=== PATIENT | male | born 1935 | race Caucasian/White ===

== ENCOUNTER → 2018-06-29 | Outpatient (CLI) | payer MEDICARE ==
[~2018-06-29] MED LIST: LEUPROLIDE 22.5MG SYRINGE KIT ONE
== END | disposition home or self-care (01) ==
LOC: ROC 13:43
PROVIDERS: ATTEND Radiology Radiation Oncology
DX: C61 Malignant neoplasm of prostate (principal)
CPT/HCPCS: 96402; G0463; J9217

== ENCOUNTER → 2018-08-25 | Outpatient (CLI) | payer MEDICARE ==
[~2018-08-25] MED LIST changes: +FENTANYL PF 100 MCG/2ML IVPush ONE; -LEUPROLIDE 22.5MG SYRINGE KIT ONE; +LIDOCAINE/PF 1%, 30ML IV ONE; +MIDAZOLAM 1 MG/ML, 5ML IVPush ONE
== END | disposition home or self-care (01) ==
LOC: ROC 07:35
PROVIDERS: ATTEND Radiology Radiation Oncology
DX: C61 Malignant neoplasm of prostate (principal)
CPT/HCPCS: 55876; 76942; 77332; 99156; A4648; J2250; J3010

== ENCOUNTER 2018-08-31 11:17 | Outpatient (CLI) | payer MEDICARE | END 2018-08-31 23:59 | disposition home or self-care (01) | LOC: CFH 11:17 | PROVIDERS: ATTEND Radiology Radiation Oncology | DX: C80.1 Malignant (primary) neoplasm, unspecified (principal) | CPT/HCPCS: 72195 ==

== ENCOUNTER 2018-09-25 07:33 | Outpatient (CLI) | payer MEDICARE ==
[2018-09-25] MEDS ORDERED: LEUPROLIDE (ELIGARD) 22.5 MG SYR SQ ONE (11:25)
== END 2018-09-25 23:59 | disposition home or self-care (01) ==
LOC: ROC 07:33
PROVIDERS: ATTEND Radiology Radiation Oncology
DX: Z51.11 Encounter for antineoplastic chemotherapy (principal); C61 Malignant neoplasm of prostate
CPT/HCPCS: 96402; J9217

== ENCOUNTER 2018-12-21 08:32 | Outpatient (CLI) | payer MEDICARE | END 2018-12-21 23:59 | disposition home or self-care (01) | LOC: ROC 08:32 | PROVIDERS: ATTEND Radiology Radiation Oncology | DX: Z08 Encounter for follow-up examination after completed treatment for malignant neoplasm (principal); Z85.46 Personal history of malignant neoplasm of prostate; Z88.0 Allergy status to penicillin | CPT/HCPCS: G0463 ==

== ENCOUNTER → 2019-06-07 | Outpatient (CLI) | payer MEDICARE | END | disposition home or self-care (01) | LOC: ROC 09:08 | PROVIDERS: ATTEND Radiology Radiation Oncology | DX: Z08 Encounter for follow-up examination after completed treatment for malignant neoplasm (principal); Z88.0 Allergy status to penicillin; Z79.899 Other long term (current) drug therapy | CPT/HCPCS: G0463 ==

== ENCOUNTER → 2020-01-03 | Outpatient (CLI) | payer MEDICARE | END | disposition home or self-care (01) | LOC: ROC 09:14 | PROVIDERS: ATTEND Radiology Radiation Oncology | DX: Z08 Encounter for follow-up examination after completed treatment for malignant neoplasm (principal); Z85.46 Personal history of malignant neoplasm of prostate | CPT/HCPCS: G2012 ==

== ENCOUNTER 2020-09-21 07:30 | Outpatient (CLI) | payer MEDICARE | END 2020-09-21 23:59 | disposition home or self-care (01) | LOC: ROC 07:30 | PROVIDERS: ATTEND Radiology Radiation Oncology | DX: Z08 Encounter for follow-up examination after completed treatment for malignant neoplasm (principal); Z85.46 Personal history of malignant neoplasm of prostate | CPT/HCPCS: 99212; G0463; G2251 ==